=== PATIENT | female | born 1930 | race Caucasian/White ===

== ENCOUNTER 2016-06-14 06:09 | Inpatient (IN) | payer MEDICARE, BC ==
[~2016-06-14 06:09] MED LIST: ASPIR 8181 MG PO; CALCIUM CA500 MG/51 PO; FISH OIL 1,2001 CAP PO; LESCOL40 MG PO; MIRALAX17 G1 PO; NORCO 5/3251 TAB PO; PRILOSEC20 MG PO; SYNTHROID88 MCG PO; VITAMIN D35000 UNI1 PO
[2016-06-14 06:59] LABS: BASO % 0.5 % (0-2); EOS % 1.5 % (0-7); EOSINOPHIL ABSOLUTE COUNT 0.1 tho/cmm (0.0-0.7); HCT-HEMATOCRIT 32.7 % (34.0-49.0); HGB-HEMOGLOBIN 11.2 gm/dl (12.0-15.5); IMMATURE GRANULOCYTES ABSOLUTE 0.02 tho/cmm (0-0.03); IMMATURE GRANULOCYTES PERCENT 0.3 % (0-0.3); LYMPH % 27.6 % (20-45); LYMPH ABSOLUTE COUNT 1.6 tho/cmm (0.8-4.5); MCH (MEAN CORPUSCULAR HGB) 31.2 pg (28.0-32.0); MCHC MEAN CORPUSCULAR HGB CONC 34.3 % (32.0-36.0); MCV (MEAN CELL VOLUME) 91.1 fl (82.0-96.0); MEAN PLATELET VOLUME 9.1 cmc (9.4-12.4); MONO % 5.1 % (0-12); MONOCYTE ABSOLUTE COUNT 0.3 tho/cmm (0.0-1.2); NEUTROPHIL ABSOLUTE COUNT 3.8 tho/cmm (1.6-8.0); NEUTROPHIL-AUTOMATED 3.8 tho/cmm (1.6-8.0); PLATELET COUNT 237 tho/cmm (150-450); RED BLOOD COUNT 3.59 mil/cmm (4.00-5.20); RED CELL DISTRIBUTION WIDTH 14.4 % (12.4-16.4); WHITE BLOOD COUNT 5.9 tho/cmm (4.0-10.0)
[2016-06-14 07:04] LABS: INR 0.9 INR (0.9-1.1); PROTHROMBIN TIME 10.4 SECONDS (9.0-13.6)
[2016-06-14 07:11] LABS: ANION GAP 11 mmol/L (0-20); BLOOD UREA NITROGEN 17 mg/dl (6-24); CARBON DIOXIDE-VENOUS 27 mmol/L (22-32); CHLORIDE 108 mmol/l (96-110); GLUCOSE 115 mg/dL (70-110); POTASSIUM 3.6 mmol/L (3.7-5.1); SODIUM 142 mmol/L (135-145); eGFR VALUE FOR BLACK 68 mL/Min
[2016-06-14] MEDS ORDERED: SYNTHROID75 MC1 PO (09:15)
[2016-06-14] MEDS ORDERED: VITAMIN B12 IM (09:17)
[2016-06-14 20:52] LABS: ANION GAP 11 mmol/L (0-20); BLOOD UREA NITROGEN 14 mg/dl (6-24); CARBON DIOXIDE-VENOUS 27 mmol/L (22-32); CHLORIDE 107 mmol/l (96-110); CREATININE 0.84 mg/dl (0.50-1.10); GLUCOSE 152 mg/dL (70-110); MAGNESIUM 1.8 mg/dl (1.3-2.6); POTASSIUM 4.1 mmol/L (3.7-5.1); SODIUM 141 mmol/L (135-145); eGFR VALUE FOR BLACK 73 mL/Min
[2016-06-14 22:26] LABS: URINE APPEARANCE HAZY; URINE BILIRUBIN NEGATIVE (NEG); URINE BLOOD MODERATE (NEG); URINE COLOR YELLOW; URINE GLUCOSE (UA) MODERATE (NEG); URINE KETONE NEGATIVE (NEG); URINE LEUKOCYTE ESTERASE POSITIVE (NEG); URINE NITRITE NEGATIVE (NEG); URINE PROTEIN MODERATE (NEG)
[2016-06-14 22:56] LABS: URINE AMORPHOUS 1+
[2016-06-15 05:35] LABS: IMMATURE GRANULOCYTES ABSOLUTE 0.01 tho/cmm (0-0.03); IMMATURE GRANULOCYTES PERCENT 0.1 % (0-0.3); LYMPH % 10.1 % (20-45); LYMPH ABSOLUTE COUNT 0.8 tho/cmm (0.8-4.5); MCV (MEAN CELL VOLUME) 91.4 fl (82.0-96.0); MEAN PLATELET VOLUME 9.6 cmc (9.4-12.4); MONO % 6.3 % (0-12); MONOCYTE ABSOLUTE COUNT 0.5 tho/cmm (0.0-1.2); NEUTROPHIL ABSOLUTE COUNT 6.9 tho/cmm (1.6-8.0); NEUTROPHIL-AUTOMATED 6.9 tho/cmm (1.6-8.0); NEUTROPHILS % 83.5 % (40-80); PLATELET COUNT 176 tho/cmm (150-450); RED BLOOD COUNT 2.32 mil/cmm (4.00-5.20); RED CELL DISTRIBUTION WIDTH 14.3 % (12.4-16.4); WHITE BLOOD COUNT 8.2 tho/cmm (4.0-10.0)
[2016-06-15 05:47] LABS: HCT-HEMATOCRIT 21.2 % (34.0-49.0); HGB-HEMOGLOBIN 7.2 gm/dl (12.0-15.5)
[2016-06-15 06:08] LABS: ANION GAP 10 mmol/L (0-20); BLOOD UREA NITROGEN 16 mg/dl (6-24); CALCIUM 8.3 mg/dl (8.5-10.5); CARBON DIOXIDE-VENOUS 29 mmol/L (22-32); CHLORIDE 107 mmol/l (96-110); CREATININE 0.73 mg/dl (0.50-1.10); GLUCOSE 126 mg/dL (70-110); POTASSIUM 4.5 mmol/L (3.7-5.1); SODIUM 141 mmol/L (135-145); eGFR VALUE FOR BLACK 87 mL/Min
[2016-06-16 09:28] LABS: BASO % 0.1 % (0-2); HGB-HEMOGLOBIN 9.2 gm/dl (12.0-15.5); IMMATURE GRANULOCYTES ABSOLUTE 0.04 tho/cmm (0-0.03); IMMATURE GRANULOCYTES PERCENT 0.5 % (0-0.3); LYMPH % 11.3 % (20-45); LYMPH ABSOLUTE COUNT 0.9 tho/cmm (0.8-4.5); MCH (MEAN CORPUSCULAR HGB) 30.2 pg (28.0-32.0); MCHC MEAN CORPUSCULAR HGB CONC 34.3 % (32.0-36.0); MCV (MEAN CELL VOLUME) 87.9 fl (82.0-96.0); MEAN PLATELET VOLUME 10.1 cmc (9.4-12.4); MONO % 5.4 % (0-12); MONOCYTE ABSOLUTE COUNT 0.4 tho/cmm (0.0-1.2); NEUTROPHIL ABSOLUTE COUNT 6.7 tho/cmm (1.6-8.0); NEUTROPHIL-AUTOMATED 6.7 tho/cmm (1.6-8.0); NEUTROPHILS % 82.7 % (40-80); PLATELET COUNT 178 tho/cmm (150-450); RED BLOOD COUNT 3.05 mil/cmm (4.00-5.20); WHITE BLOOD COUNT 8.1 tho/cmm (4.0-10.0)
[2016-06-16 09:49] LABS: HCT-HEMATOCRIT 26.8 % (34.0-49.0)
[2016-10-24] MEDS ORDERED: NEURONTIN100 M1 PO ×2 (14:36→14:37)
[2016-10-24] MEDS ORDERED: NYAMYC15 GM TP (14:39)
[2016-10-24] MEDS ORDERED: MAPAP325 M2 PO (14:41)
[2016-10-24] MEDS ORDERED: CITRATE OF MAG296 M1 PO (14:43)
[2016-10-24] MEDS ORDERED: ENEMA133 M4 PR (14:44)
[2016-10-24] MEDS ORDERED: BISCOLAX10 MG PR (14:44)
[2016-10-24] MEDS ORDERED: SEA-OMEGA 30 C1 EACH PO (14:45)
[2016-10-24] MEDS ORDERED: MILK OF MAGNESIA PO (14:47)
[2016-10-24] MEDS ORDERED: BISACODYL5 M1 PO (14:47)
[2016-10-24] MEDS ORDERED: CALCIUM CARBON600 M2 PO (14:48)
== END 2016-06-17 11:45 | DRG 481 ==
LOC: EDMED 06:09 → EMR2 09:27 → SHSC 09:57 → ORE 13:54 → PACU 16:02 → 5EB 19:46
PROVIDERS: Emergency Medicine; Orthopaedic Surgery Foot and Ankle Surgery; ADMIT Family Medicine
PROC: 0QH704Z Insertion of Internal Fixation Device into Left Upper Femur, Open Approach (ICD-10-PCS; principal; 2016-06-14)
PROC: 30233N1 Transfusion of Nonautologous Red Blood Cells into Peripheral Vein, Percutaneous Approach (ICD-10-PCS; 2016-06-14)
DX: S72.102A Unspecified trochanteric fracture of left femur, initial encounter for closed fracture (principal); D62 Acute posthemorrhagic anemia; E03.9 Hypothyroidism, unspecified; E78.5 Hyperlipidemia, unspecified; K21.9 Gastro-esophageal reflux disease without esophagitis; R41.0 Disorientation, unspecified; W19.XXXA Unspecified fall, initial encounter
CPT/HCPCS: C1713; G8987-GO-CL; J0171; J0690; J1170; J1650; J1885; J2270; J2310; J2795; J7030; P9016

== ENCOUNTER 2016-07-07 16:44 | Inpatient (IN) | payer MEDICARE, BC ==
[~2016-07-07 16:44] MED LIST changes: +SYNTHROID75 MC1 PO; +VITAMIN B12 IM
[2016-07-07] MEDS ORDERED: ATIVAN0.5 M1 PO (17:16)
[2016-07-07] MEDS ORDERED: CALCIUM CARBON600 M2 PO (17:17)
[2016-07-07] MEDS ORDERED: BUSPIRONE HCL10 M2 PO (17:17)
[2016-07-07] MEDS ORDERED: NORCO 5-325 TA1 EACH PO (17:17)
[2016-07-07] MEDS ORDERED: LOVENOX30 MG/0.1 SC (17:19)
[2016-07-07] MEDS ORDERED: VITAMIN D35000 UNI2 PO (17:20)
[2016-07-07] MEDS ORDERED: CYANOCOBAL1000 MCG/3 IM (17:21)
[2016-07-07] MEDS ORDERED: TYLENOL325 M2 PO (17:22)
[2016-07-07] MEDS ORDERED: SENOKOT-S TABL1 EACH PO (17:22)
[2016-07-07 18:10] LABS: BASO % 0.3 % (0-2); EOS % 0.4 % (0-7); HCT-HEMATOCRIT 29.6 % (34.0-49.0); HGB-HEMOGLOBIN 9.7 gm/dl (12.0-15.5); IMMATURE GRANULOCYTES ABSOLUTE 0.04 tho/cmm (0-0.03); IMMATURE GRANULOCYTES PERCENT 0.6 % (0-0.3); LYMPH % 9.9 % (20-45); LYMPH ABSOLUTE COUNT 0.7 tho/cmm (0.8-4.5); MCH (MEAN CORPUSCULAR HGB) 31.5 pg (28.0-32.0); MCHC MEAN CORPUSCULAR HGB CONC 32.8 % (32.0-36.0); MCV (MEAN CELL VOLUME) 96.1 fl (82.0-96.0); MEAN PLATELET VOLUME 8.5 cmc (9.4-12.4); MONOCYTE ABSOLUTE COUNT 0.7 tho/cmm (0.0-1.2); NEUTROPHIL ABSOLUTE COUNT 5.8 tho/cmm (1.6-8.0); NEUTROPHIL-AUTOMATED 5.8 tho/cmm (1.6-8.0); NEUTROPHILS % 79.8 % (40-80); PLATELET COUNT 433 tho/cmm (150-450); RED BLOOD COUNT 3.08 mil/cmm (4.00-5.20); RED CELL DISTRIBUTION WIDTH 16.4 % (12.4-16.4); WHITE BLOOD COUNT 7.2 tho/cmm (4.0-10.0)
[2016-07-07 18:14] LABS: INR 0.9 INR (0.9-1.1); PROTHROMBIN TIME 10.2 SECONDS (9.0-13.6)
[2016-07-07 18:21] LABS: ANION GAP 12 mmol/L (0-20); BLOOD UREA NITROGEN 12 mg/dl (6-24); CALCIUM 8.7 mg/dl (8.5-10.5); CARBON DIOXIDE-VENOUS 29 mmol/L (22-32); CHLORIDE 102 mmol/l (96-110); CREATININE 0.72 mg/dl (0.50-1.10); GLUCOSE 127 mg/dL (70-110); POTASSIUM 4.2 mmol/L (3.7-5.1); SODIUM 139 mmol/L (135-145); eGFR VALUE FOR BLACK 89 mL/Min
[2016-07-09 06:27] LABS: BASO % 0.2 % (0-2); EOS % 0.7 % (0-7); IMMATURE GRANULOCYTES ABSOLUTE 0.01 tho/cmm (0-0.03); IMMATURE GRANULOCYTES PERCENT 0.2 % (0-0.3); LYMPH ABSOLUTE COUNT 0.7 tho/cmm (0.8-4.5); MCV (MEAN CELL VOLUME) 96.1 fl (82.0-96.0); MEAN PLATELET VOLUME 8.7 cmc (9.4-12.4); MONO % 16.7 % (0-12); MONOCYTE ABSOLUTE COUNT 0.7 tho/cmm (0.0-1.2); NEUTROPHIL ABSOLUTE COUNT 2.8 tho/cmm (1.6-8.0); NEUTROPHIL-AUTOMATED 2.8 tho/cmm (1.6-8.0); NEUTROPHILS % 66.2 % (40-80); PLATELET COUNT 289 tho/cmm (150-450); RED BLOOD COUNT 2.28 mil/cmm (4.00-5.20); RED CELL DISTRIBUTION WIDTH 16.5 % (12.4-16.4); WHITE BLOOD COUNT 4.2 tho/cmm (4.0-10.0)
[2016-07-09 06:31] LABS: HCT-HEMATOCRIT 21.9 % (34.0-49.0); HGB-HEMOGLOBIN 7.1 gm/dl (12.0-15.5); MCH (MEAN CORPUSCULAR HGB) 31.1 pg (28.0-32.0); MCHC MEAN CORPUSCULAR HGB CONC 32.4 % (32.0-36.0)
[2016-07-09 06:40] LABS: ANION GAP 11 mmol/L (0-20); BLOOD UREA NITROGEN 15 mg/dl (6-24); CALCIUM 8.4 mg/dl (8.5-10.5); CARBON DIOXIDE-VENOUS 28 mmol/L (22-32); CHLORIDE 106 mmol/l (96-110); CREATININE 0.84 mg/dl (0.50-1.10); GLUCOSE 98 mg/dL (70-110); POTASSIUM 5.2 mmol/L (3.7-5.1); SODIUM 140 mmol/L (135-145); eGFR VALUE FOR BLACK 73 mL/Min
[2016-07-10 06:02] LABS: BASO % 0.2 % (0-2); EOS % 2.2 % (0-7); EOSINOPHIL ABSOLUTE COUNT 0.1 tho/cmm (0.0-0.7); HGB-HEMOGLOBIN 7.5 gm/dl (12.0-15.5); IMMATURE GRANULOCYTES ABSOLUTE 0.01 tho/cmm (0-0.03); IMMATURE GRANULOCYTES PERCENT 0.2 % (0-0.3); LYMPH % 11.6 % (20-45); LYMPH ABSOLUTE COUNT 0.6 tho/cmm (0.8-4.5); MCH (MEAN CORPUSCULAR HGB) 30.9 pg (28.0-32.0); MCHC MEAN CORPUSCULAR HGB CONC 32.5 % (32.0-36.0); MCV (MEAN CELL VOLUME) 95.1 fl (82.0-96.0); MEAN PLATELET VOLUME 8.5 cmc (9.4-12.4); MONO % 9.2 % (0-12); MONOCYTE ABSOLUTE COUNT 0.5 tho/cmm (0.0-1.2); NEUTROPHIL ABSOLUTE COUNT 3.9 tho/cmm (1.6-8.0); NEUTROPHIL-AUTOMATED 3.9 tho/cmm (1.6-8.0); NEUTROPHILS % 76.6 % (40-80); PLATELET COUNT 351 tho/cmm (150-450); RED BLOOD COUNT 2.43 mil/cmm (4.00-5.20); RED CELL DISTRIBUTION WIDTH 16.1 % (12.4-16.4); WHITE BLOOD COUNT 5.1 tho/cmm (4.0-10.0)
[2016-07-10 06:06] LABS: HCT-HEMATOCRIT 23.1 % (34.0-49.0)
[2016-10-24] MEDS ORDERED: NEURONTIN100 M1 PO ×2 (14:36→14:37)
[2016-10-24] MEDS ORDERED: NYAMYC15 GM TP (14:39)
[2016-10-24] MEDS ORDERED: MAPAP325 M2 PO (14:41)
[2016-10-24] MEDS ORDERED: CITRATE OF MAG296 M1 PO (14:43)
[2016-10-24] MEDS ORDERED: BISCOLAX10 MG PR (14:44)
[2016-10-24] MEDS ORDERED: ENEMA133 M4 PR (14:44)
[2016-10-24] MEDS ORDERED: SEA-OMEGA 30 C1 EACH PO (14:45)
[2016-10-24] MEDS ORDERED: MILK OF MAGNESIA PO (14:47)
[2016-10-24] MEDS ORDERED: BISACODYL5 M1 PO (14:47)
[2016-10-24] MEDS ORDERED: CALCIUM CARBON600 M2 PO (14:48)
== END 2016-07-10 15:13 | DRG 480 ==
LOC: EMR2 16:44 → 5EB 16:45 → ORE 07-08 15:59 → 5EB 07-08 17:13
PROVIDERS: Internal Medicine; ADMIT Orthopaedic Surgery
PROC: 0QS606Z Reposition Right Upper Femur with Intramedullary Internal Fixation Device, Open Approach (ICD-10-PCS; principal; 2016-07-08)
DX: S72.001A Fracture of unspecified part of neck of right femur, initial encounter for closed fracture (principal); G92 Toxic encephalopathy; D62 Acute posthemorrhagic anemia; W19.XXXA Unspecified fall, initial encounter; E03.9 Hypothyroidism, unspecified; E78.5 Hyperlipidemia, unspecified; K21.9 Gastro-esophageal reflux disease without esophagitis; Z79.82 Long term (current) use of aspirin; Z91.81 History of falling; Z51.5 Encounter for palliative care; F03.90 Unspecified dementia, unspecified severity, without behavioral disturbance, psychotic disturbance, mood disturbance, and anxiety; Z87.81 Personal history of (healed) traumatic fracture; Y92.199 Unspecified place in other specified residential institution as the place of occurrence of the external cause
CPT/HCPCS: J0131; J0171; J0690; J1650; J1885; J2270; J2795